=== PATIENT | female | born 1960 | race Caucasian/White ===

== ENCOUNTER → 2019-03-24 | Outpatient (CLI) | payer OTHER ==
[~2019-03-24] VITALS: Ht 162.6 cm; Wt 65.8 kg
[~2019-03-24] MED LIST: ACET325T9 PO; SINCALIDE 1.32 MCG in IV NORMAL SALINE 50ML 30 ML IV ONE
--- NOTE | 2019-03-24 10:50 | RAD ---
EXAM: Nuclear hepatobiliary scan. HISTORY: Pain. TECHNIQUE: Following intravenous administration of 5.0 mCi Tc 99m Choletec, anterior images of the abdomen were obtained at five minute intervals through one hour. Subsequently, 1.32 mcg CCK was administered and additional images to assess gallbladder ejection fraction were obtained. FINDINGS: There is prompt radiotracer uptake by the liver. No focal defect is seen. There is normal excretion into the biliary tree. The gallbladder is visualized within 5 minutes and there is free flow into the duodenum. The gallbladder ejection fraction is 97%. The patient reported subjective pain during medication administration for gallbladder contraction. IMPRESSION: Elevated gallbladder ejection fraction of 97% and subjective pain during medication administration for gallbladder contraction. Correlate for biliary hyperkinesia. Electronically signed by: Sonia Daniels MD (03/24/2019 10:47 AM) [email or web address]
== END | disposition home or self-care (01) ==
LOC: NM 08:08
PROVIDERS: ATTEND Family Medicine
DX: R10.11 Right upper quadrant pain (principal)
CPT/HCPCS: 78227; A9537; J2805